=== PATIENT | male | born 1965 | race African-American/Black ===

== ENCOUNTER 2016-11-09 01:26 | Emergency (ER) | payer OTHER ==
[~2016-11-09] VITALS: Ht 177.8 cm; Wt 72.3 kg
[~2016-11-09 01:26] MED LIST: CHOL5000 PO; COMBTAB PO; DOXY100T PO; GABA300C3 PO; MIRTA15 PO; MOBI15TA PO; NEVI200 PO; TRAM50 PO; TRUVTAB2 PO
[2016-11-09 01:39] VITALS: BP 147/82; PULSE 100; RESP 18; TEMP 98.3; O2SAT 100
[2016-11-09] MEDS ORDERED: EMTR1TAB PO (01:49)
[2016-11-09] MEDS ORDERED: GABA300C5 PO (01:49)
[2016-11-09] MEDS ORDERED: COMBTAB7 PO (01:49)
[2016-11-09] MEDS ORDERED: VIRA200T PO (01:49)
[2016-11-09] MEDS ORDERED: ULTR50TA5 PO (01:49)
[2016-11-09] MEDS ORDERED: MIRTA15 PO (01:49)
--- NOTE | 2016-11-09 01:49 | PD ---
HPI Chief Complaint: Psychiatric Symptoms Time Seen by Provider: 01:44 Travel History International Travel<30 days: No Contact w/Intl Traveler<30days: No History of Present Illness HPI 51-year-old male with history of HIV, presents to the ER today because he had stated to a friend that he went to jump off the [employer] bridge. He was Luis acted. He denies any intention to commit suicide. He denies any ingestions or any other issues. Modifying Factors: None Associated Signs & Symptoms: Smith act, suicidal ideation Risk Factors: None PFSH Past Medical History Hx Anticoagulant Therapy: Yes (UNKNOWN) Blood Disorders: No Anxiety: Yes Depression: No Heart Rhythm Problems: No Cancer: No Cardiac Catheterization: No Cardiovascular Problems: No High Cholesterol: Yes Congestive Heart Failure: No Diabetes: No Diminished Hearing: No Endocrine: No Genitourinary: No Headaches: No Hepatitis: Yes Hypertension: Yes Immune Disorder: Yes (HIV +) Implanted Vascular Access Dvce: No Musculoskeletal: No Neurologic: No Psychiatric: No Reproductive: No Respiratory: No Seizures: No Past Surgical History Surgical History: No Previous Surgery Other Surgery: No Social History Alcohol Use: Yes Tobacco Use: Yes (2 PPD) Substance Use: Yes (crack in past ) Allergies-Medications (Allergen,Severity, Reaction): Coded Allergies: No Known Allergies (Verified , 11/09/16) Reported Meds & Prescriptions Reported Meds & Active Scripts Active Reported Ultram (Tramadol HCl) 50 Mg Tab 50 Mg PO Q8H PRN Mirtazapine 15 Mg Tab 15 Mg PO HS Viramune (Nevirapine) 200 Mg Tab 200 Mg PO BID Gabapentin 300 Mg Cap 300 Mg PO TID Combivir (Lamivudine-Zidovudine) 150-300 Mg Tab 1 Tab PO BID Truvada (Emtricitabine-Tenofovir Disoproxil Fumarate) 200-300 Mg Tab 1 Tab PO DAILY Review of Systems Except as stated in HPI: all other systems reviewed are Neg Physical Exam Narrative GENERAL: Well-developed middle age -[place] male patient currently not in acute distress. Awake and oriented 3. SKIN: Focused skin assessment warm/dry. HEAD: Atraumatic. Normocephalic. EYES: Pupils equal and round. No scleral icterus. No injection or drainage. ENT: No nasal bleeding or discharge. Mucous membranes pink and moist. NECK: Trachea midline. No JVD. CARDIOVASCULAR: Regular rate and rhythm. No murmur appreciated. RESPIRATORY: No accessory muscle use. Clear to auscultation. Breath sounds equal bilaterally. GASTROINTESTINAL: Abdomen soft, non-tender, nondistended. Hepatic and splenic margins not palpable. MUSCULOSKELETAL: No obvious deformities. No clubbing. No cyanosis. No edema. NEUROLOGICAL: Awake and alert. No obvious cranial nerve deficits. Motor grossly within normal limits. Normal speech. PSYCHIATRIC: Appropriate mood and affect; insight and judgment normal. Data Data Last Documented VS Vital Signs Date Time Temp Pulse Resp B/P Pulse Ox O2 Delivery O2 Flow Rate FiO2 11/09/16 01:39 98.3 100 18 147/82 100 Orders Complete Blood Count With Diff (11/09/16 01:44) Comprehensive Metabolic Panel (11/09/16 01:44) Psych Screen (11/09/16 01:44) Drug Screen, Random Urine (11/09/16 01:44) Alcohol (Ethanol) (11/09/16 01:44) Labs Laboratory Tests Test 11/09/16 11/09/16 01:23 01:50 Urine Opiates Screen NEG Urine Barbiturates Screen NEG Urine Amphetamines Screen NEG Urine Benzodiazepines Screen NEG Urine Cocaine Screen NEG Urine Cannabinoids Screen NEG White Blood Count 6.2 TH/MM3 Red Blood Count 4.54 MIL/MM3 Hemoglobin 16.0 GM/DL Hematocrit 45.9 % Mean Corpuscular Volume 101.2 FL Mean Corpuscular Hemoglobin 35.1 PG Mean Corpuscular Hemoglobin 34.7 % Concent Red Cell Distribution Width 14.9 % Platelet Count 171 TH/MM3 Mean Platelet Volume 9.4 FL Neutrophils (%) (Auto) 51.3 % Lymphocytes (%) (Auto) 34.5 % Monocytes (%) (Auto) 11.4 % Eosinophils (%) (Auto) 2.1 % Basophils (%) (Auto) 0.7 % Neutrophils # (Auto) 3.2 TH/MM3 Lymphocytes # (Auto) 2.1 TH/MM3 Monocytes # (Auto) 0.7 TH/MM3 Eosinophils # (Auto) 0.1 TH/MM3 Basophils # (Auto) 0.0 TH/MM3 CBC Comment DIFF FINAL Differential Comment Sodium Level 142 MEQ/L Potassium Level 4.1 MEQ/L Chloride Level 105 MEQ/L Carbon Dioxide Level 29.3 MEQ/L Anion Gap 8 MEQ/L Blood Urea Nitrogen 23 MG/DL Creatinine 1.28 MG/DL Estimat Glomerular Filtration 72 ML/MIN Rate Random Glucose 93 MG/DL Calcium Level 9.3 MG/DL Total Bilirubin 0.3 MG/DL Aspartate Amino Transf 21 U/L (AST/SGOT) Alanine Aminotransferase 25 U/L (ALT/SGPT) Alkaline Phosphatase 62 U/L Total Protein 8.1 GM/DL Albumin 4.1 GM/DL Ethyl Alcohol Level LESS THAN 3 MG/DL MDM Medical Decision Making Medical Screen Exam Complete: Yes Emergency Medical Condition: Yes Medical Record Reviewed: Yes Interpretation(s) Laboratory Tests Test 11/09/16 01:50 Mean Corpuscular Volume 101.2 FL (80.0-100.0) Mean Corpuscular Hemoglobin 35.1 PG (27.0-34.0) Monocytes (%) (Auto) 11.4 % (0.0-8.0) Blood Urea Nitrogen 23 MG/DL (7-18) Estimat Glomerular Filtration 72 ML/MIN (>89) Rate Differential Diagnosis Suicidal ideationrule out ingestions versus intoxication versus metabolic issues Narrative Course Lab work did not show any significant metabolic issues. He is not intoxicated. Patient is vital signs are stable in the ER. Lab work did not indicate significant metabolic issues. He is not intoxicated. At this point, my plan would be to medically clear for psychiatric evaluation. Diagnosis Primary Impression: Suicidal ideation Disposition: 65 DISC TO PSYCH CARE FACILITY Condition: Stable Tristian Hill MD November 09, 2016 01:49
[2016-11-09 02:01] LABS: AUTOMATED NEUTROPHIL # 3.2 TH/MM3 (1.8-7.7); BASOPHIL % 0.7 % (0.0-2.0); EOSINOPHIL # 0.1 TH/MM3 (0-0.4); EOSINOPHIL % 2.1 % (0.0-4.0); HEMATOCRIT 45.9 % (39.0-51.0); HEMO FLAGS DIFF FINAL; LYMPH % 34.5 % (9.0-44.0); LYMPHOCYTE # 2.1 TH/MM3 (1.0-4.8); MEAN CELL VOLUME 101.2 FL (80.0-100.0); MEAN CORPUSCULAR HEMOGLOBIN 35.1 PG (27.0-34.0); MEAN CORPUSCULAR HGB CONC 34.7 % (32.0-36.0); MONO % 11.4 % (0.0-8.0); NEUT % 51.3 % (16.0-70.0); PLATELET COUNT 171 TH/MM3 (150-450); RED BLOOD COUNT 4.54 MIL/MM3 (4.50-5.90); RED CELL DISTRIBUTION WIDTH 14.9 % (11.6-17.2); WHITE BLOOD COUNT 6.2 TH/MM3 (4.0-11.0)
[2016-11-09 02:11] LABS: AMPHETAMINE, URINE NEG (NEG); BARBITURATES, URINE NEG (NEG); COCAINE, URINE NEG (NEG)
[2016-11-09 02:29] LABS: ALKALINE PHOSPHATASE 62 U/L (45-117); ALT (GPT) 25 U/L (12-78); TOTAL BILIRUBIN ADULT 0.3 MG/DL (0.2-1.0)
[2016-11-09 02:31] LABS: ANION GAP 8 MEQ/L (5-15); AST (GOT) 21 U/L (15-37); BICARBONATE 29.3 MEQ/L (21.0-32.0); BLOOD UREA NITROGEN 23 MG/DL (7-18); CHLORIDE 105 MEQ/L (98-107); GLOMERULAR FILTRATION RATE 72 ML/MIN (>89); POTASSIUM 4.1 MEQ/L (3.5-5.1); SODIUM (NA) 142 MEQ/L (136-145)
[2016-11-09 06:09] VITALS: BP 106/54; PULSE 71; RESP 18; O2SAT 99
[2016-11-09 10:05] VITALS: BP 118/58; PULSE 86; RESP 18; TEMP 97.9; O2SAT 98
[2016-11-09 14:05] VITALS: BP 137/64; PULSE 82; RESP 18; TEMP 98.6; O2SAT 96
--- NOTE | 2016-11-10 08:31 | PD.CONS ---
Provisional Diagnosis Admission Date [place] I. Adjustment disorder with depressed mood History of Present Illness Service Psychiatry Consult Requested By Primary Care Physician Unknown HPI The patient is a 51-year-old man, domiciled with his sister in [place], unemployed, single, on SSD, well known by this service, multiple ER visits with similar complaints, psychiatric history of adjustment disorder with disturbance of conduct, medical history of HIV, presents to the ER today because he had stated to a friend that he went to jump off the [employer] bridge. He was Smith acted. Since patient arrived to the ER he has been stating that this was a misunderstood and he did not wanted to jump off a bridge. On psychiatric evaluation patient is found sitting quietly in his room. In a good spirits, reports good mood, is states that he was misinterpreted. He denies depression, he denies suicidal ideation, denies visual and auditory hallucinations. He is very malodorous and disheveled, as per staff patient has been calm and cooperative in the unit, cheerful at times, asking frequently for food. No agitation or aggressive behavior reported. He denies the use of alcohol and illicit drugs. Review of Systems Constitutional: DENIES: Diaphoretic episodes, Fatigue, Fever, Weight gain, Weight loss, Chills, Dizziness, Change in appetite, Night Sweats Endocrine: DENIES: Heat/cold intolerance, Polydipsia, Polyuria, Polyphagia Eyes: DENIES: Blurred vision, Diplopia, Eye inflammation, Eye pain, Vision loss , Photosensitivity, Double Vision Ears, nose, mouth, throat: DENIES: Tinnitus, Hearing loss, Vertigo, Nasal discharge, Oral lesions, Throat pain, Hoarseness, Ear Pain, Running Nose, Epistaxis, Sinus Pain, Toothache, Odynophagia Respiratory: DENIES: Apneas, Cough, Snoring, Wheezing, Hemoptysis, Sputum production, Shortness of breath Cardiovascular: DENIES: Chest pain, Palpitations, Syncope, Dyspnea on Exertion , PND, Lower Extremity Edema, Orthopnea, Claudication Gastrointestinal: DENIES: Abdominal pain, Black stools, Bloody stools, Constipation, Diarrhea, Nausea, Vomiting, Difficulty Swallowing, Anorexia Genitourinary: DENIES: Sexual dysfunction, Urinary frequency, Urinary incontinence, Urgency, Hematuria, Dysuria, Nocturia, Penile Discharge, Testicular Pain, Testicular Swelling Musculoskeletal: DENIES: Joint pain, Muscle aches, Stiffness, Joint Swelling, Back pain, Neck pain Integumentary: DENIES: Abnormal pigmentation, Nail changes, Pruritus, Rash Hematologic/lymphatic: DENIES: Bruising, Lymphadenopathy Immunologic/allergic: DENIES: Eczema, Urticaria Neurologic: DENIES: Abnormal gait, Headache, Localized weakness, Paresthesias, Seizures, Speech Problems, Tremor, Poor Balance Psychiatric: DENIES: Anxiety, Confusion, Mood changes, Depression, Hallucinations, Agitation, Suicidal Ideation, Homicidal Ideation, Delusions Past Family Social History Coded Allergies: No Known Allergies (Verified , 11/09/16) Reported Medications Tramadol (Ultram)50 Mg Tab50 Mg PO Q8H PRN (PAIN) Ref 0 11/09/16 Mirtazapine 15 Mg Tab15 Mg PO HS #30 TAB Ref 0 11/09/16 Nevirapine (Viramune)200 Mg [id number] Mg PO BID #60 TAB Ref 0 11/09/16 Gabapentin 300 Mg [id number] Mg PO TID #90 CAP Ref 0 11/09/16 Lamivudine-Zidovudine (Combivir)150-300 Mg Tab1 Tab PO BID #60 TAB Ref 0 11/09/16 Emtricitabine-Tenofovir Disoproxil Fumarate (Truvada)200-300 Mg Tab1 Tab PO DAILY #30 TAB Ref 0 11/09/16 Discontinued Reported Medications Gabapentin 300 Mg [id number] Mg PO TID 03/19/14 Lamivudine-Zidovudine (Combivir) Tab1 Tab PO DAILY #1 TAB 08/07/13 Emtricitabine-Tenofovir Disopr (Truvada) [id number] Mg PO DAILY 10/24/11 Nevirapine (Viramune)200 Mg Ont868 Mg PO BID Ref 0 04/08/11 Discontinued Scripts Tramadol Hcl (Ultram)50 Mg Tab1 Tab PO Q6HR #20 TAB FOR PAIN Prov:Alexsander Kitchen MD 07/01/15 Meloxicam (Mobic)15 Mg Tab15 Mg PO DAILY #30 TAB Prov:Alexsander Kitchen MD 07/01/15 Doxycycline Hyclate 100 mg 100 Mg Tab1 Tab PO BID #20 TAB Prov:Alexsander Kitchen MD 07/01/15 Cholecalciferol (D 5000)5,000 Units Cap5,000 Units PO DAILY 15 Days Ref 1 Prov:Enrique Solis MD 04/27/15 Mirtazapine 15 Mg Tab15 Mg PO HS 15 Days Ref 1 Prov:Enrique Solis MD 04/27/15 Family History Patient denies psychiatric family history Social History Patient was born and raised in [place], he lives with his sister, he is unemployed, supported by SSD, single her highest level of education is 11th grade Physical Exam On physical exam no psychomotor agitation or retardation, no restlessness, no EPS, no withdrawal symptoms, tremors Vital Signs Vital Signs Date Time Temp Pulse Resp B/P Pulse Ox O2 Delivery O2 Flow Rate FiO2 11/09/16 14:05 98.6 82 18 137/64 96 Room Air Lab Results Toxicology is negative, BAL is negative Mental Status Examination Appearance man, with poor hygiene, malodorous, he appears younger than his stated age, is calm, cooperative Speech: Unremarkable Thought Process: Logical Thought Content: Unremarkable Language Fluent and spontaneous Hallucination Type: None Attention and Concentration: Good Suicidal Ideation: No Previous Suicide Attempts: No Homicidal Ideation: No Previous Homicide Attempts: No Judgment: WNL Mood: Appropriate Motor Activity: Normal gait Assessment & Plan Problem List: (1) Adjustment disorder with mixed disturbance of emotions and conduct Assessment & Plan: On psychiatric evaluation the patient does not present any psychiatric symptoms that require an immediate psychiatric intervention or psychiatric hospitalization. Patient denies suicidal or homicidal ideation, he denies visual and auditory hallucinations. On the Longitudinal observation in the ER patient hasn't presented any agitation, aggressive behavior, any concerning mood liability or behavioral disturbance. He does not meet criteria for psychiatric admission. Smith act will be lifted. ICD Code: F43.25 Assessment & Plan Estimated LOS: Frandy Gamboa MD November 10, 2016 08:31
== END 2016-11-09 18:02 | disposition home or self-care (01) ==
LOC: NEPE 01:26 → NEPJ 18:02
DX: R45.851 Suicidal ideations (principal); F43.25 Adjustment disorder with mixed disturbance of emotions and conduct; I10 Essential (primary) hypertension; E78.00 Pure hypercholesterolemia, unspecified; F17.200 Nicotine dependence, unspecified, uncomplicated; Z79.01 Long term (current) use of anticoagulants; Z21 Asymptomatic human immunodeficiency virus [HIV] infection status; Z86.59 Personal history of other mental and behavioral disorders
CPT/HCPCS: 80053; 80307; 85025; 99283

== ENCOUNTER 2017-01-25 13:58 | Observation (INO) | payer OTHER ==
[~2017-01-25] VITALS: Ht 177.8 cm; Wt 70.0 kg
[2017-01-25] VITALS (10 sets, daily range): BP systolic 119–145; BP diastolic 69–82; PULSE 67–97; RESP 18–21; TEMP 97.8–99; O2SAT 95–100
[~2017-01-25 13:58] MED LIST changes: -CHOL5000 PO; -COMBTAB PO; +COMBTAB7 PO; -DOXY100T PO; +EMTR1TAB PO; -GABA300C3 PO; +GABA300C5 PO; -MOBI15TA PO; -NEVI200 PO; -TRAM50 PO; -TRUVTAB2 PO; +ULTR50TA5 PO; +VIRA200T PO
[2017-01-25] MEDS ORDERED: ASPIRIN 81 MG CHEW TAB CHEW ONE (14:45)
[2017-01-25 15:19] LABS: AUTOMATED NEUTROPHIL # 2.6 TH/MM3 (1.8-7.7); BASOPHIL % 0.8 % (0.0-2.0); EOSINOPHIL # 0.1 TH/MM3 (0-0.4); EOSINOPHIL % 1.4 % (0.0-4.0); HEMATOCRIT 44.6 % (39.0-51.0); HEMO FLAGS DIFF FINAL; LYMPH % 30.9 % (9.0-44.0); LYMPHOCYTE # 1.4 TH/MM3 (1.0-4.8); MEAN CELL VOLUME 102.3 FL (80.0-100.0); MEAN CORPUSCULAR HEMOGLOBIN 35.8 PG (27.0-34.0); MONO % 8.6 % (0.0-8.0); NEUT % 58.3 % (16.0-70.0); PLATELET COUNT 177 TH/MM3 (150-450); RED BLOOD COUNT 4.36 MIL/MM3 (4.50-5.90); RED CELL DISTRIBUTION WIDTH 15.2 % (11.6-17.2); WHITE BLOOD COUNT 4.4 TH/MM3 (4.0-11.0)
--- NOTE | 2017-01-25 15:19 | RADRPT ---
EXAM DATE/TIME: 01/25/2017 14:41 [facility] COMPARISON: No previous studies available for comparison. INDICATIONS : Chest pain MEDICAL HISTORY : None. SURGICAL HISTORY : None. ENCOUNTER: Initial ACUITY: 1 day PAIN SCORE: 2/10 LOCATION: chest FINDINGS: A single view of the chest demonstrates the lungs to be symmetrically aerated without evidence of mas s, infiltrate or effusion. The cardiomediastinal contours are unremarkable. Osseous structures are intact. CONCLUSION: No acute disease. Jose Juan Mccoy MD on January 25, 2017 at 15:17 Board Certified Radiologist. This report was verified electronically.
--- NOTE | 2017-01-25 15:20 | PD ---
HPI Chief Complaint: Chest Pain Time Seen by Provider: 14:36 Travel History International Travel<30 days: No Contact w/Intl Traveler<30days: No Traveled to known affect area: No History of Present Illness HPI This is a 51-year-old male who has a history of hypertension who presents to the emergency department reporting that he had onset of left-sided chest discomfort that started this morning. His symptoms of been constant, moderate severity nonradiating. He reports some associated shortness of breath and nausea. The pain has been intermittent but has lasted all day so he came to the emergency department. He says his never had pain like this before. He did use cocaine last night. PFSH Past Medical History Hx Anticoagulant Therapy: Yes (UNKNOWN) Blood Disorders: No Anxiety: Yes Depression: No Heart Rhythm Problems: No Cancer: No Cardiac Catheterization: No Cardiovascular Problems: No High Cholesterol: Yes Congestive Heart Failure: No Diabetes: No Diminished Hearing: No Endocrine: No Genitourinary: No Headaches: No Hepatitis: Yes Hypertension: Yes Immune Disorder: Yes (HIV +) Implanted Vascular Access Dvce: No Musculoskeletal: No Neurologic: No Psychiatric: No Reproductive: No Respiratory: No Seizures: No Tetanus Vaccination: < 5 Years Past Surgical History Surgical History: No Previous Surgery Other Surgery: No Social History Alcohol Use: Yes (beer) Tobacco Use: Yes (2 PPD) Substance Use: Yes (pt states he smoked craked last night ) Allergies-Medications (Allergen,Severity, Reaction): Coded Allergies: No Known Allergies (Verified , 01/25/17) Reported Meds & Prescriptions Reported Meds & Active Scripts Active Reported Ultram (Tramadol HCl) 50 Mg Tab 50 Mg PO Q8H PRN Mirtazapine 15 Mg Tab 15 Mg PO HS Viramune (Nevirapine) 200 Mg Tab 200 Mg PO BID Gabapentin 300 Mg Cap 300 Mg PO TID Combivir (Lamivudine-Zidovudine) 150-300 Mg Tab 1 Tab PO BID Truvada (Emtricitabine-Tenofovir Disoproxil Fumarate) 200-300 Mg Tab 1 Tab PO DAILY Review of Systems Except as stated in HPI: all other systems reviewed are Neg Physical Exam Narrative GENERAL:Well appearing, no acute distress SKIN: Focused skin assessment warm and dry. HEAD: Atraumatic. Normocephalic. EYES: Pupils equal and round. No injection or drainage. ENT: Moist mucous membranes NECK: Trachea midline. CARDIOVASCULAR: Regular rate and rhythm. No murmur appreciated. RESPIRATORY: Clear to auscultation. Breath sounds equal bilaterally. GASTROINTESTINAL: Abdomen soft, non-tender, nondistended. MUSCULOSKELETAL: No obvious deformities. NEUROLOGICAL: Awake and alert. No obvious cranial nerve deficits. Moving all extremities. PSYCHIATRIC: Appropriate mood and affect; insight and judgment normal. Data Data Last Documented VS Vital Signs Date Time Temp Pulse Resp B/P Pulse Ox O2 Delivery O2 Flow Rate FiO2 01/25/17 14:39 98 Nasal Cannula 2 01/25/17 14:15 93 20 01/25/17 14:08 98.6 145/82 Orders Electrocardiogram (01/25/17 14:36) Complete Blood Count With Diff (01/25/17 14:36) Comprehensive Metabolic Panel (01/25/17 14:36) Troponin I (01/25/17 14:36) Chest, Single Ap (01/25/17 14:36) Ecg Monitoring (01/25/17 14:36) Bilateral Bp Monitoring (01/25/17 14:36) Iv Access Insert/Monitor (01/25/17 14:36) Oximetry (01/25/17 14:36) Oxygen Administration (01/25/17 14:36) Sodium Chloride 0.9% Flush (Ns Flush) (01/25/17 14:45) Aspirin Chew (Aspirin Chew) (01/25/17 14:45) Admit Order (Ed Use Only) (01/25/17 15:44) Labs Laboratory Tests Test 01/25/17 14:55 White Blood Count 4.4 TH/MM3 Red Blood Count 4.36 MIL/MM3 Hemoglobin 15.6 GM/DL Hematocrit 44.6 % Mean Corpuscular Volume 102.3 FL Mean Corpuscular Hemoglobin 35.8 PG Mean Corpuscular Hemoglobin 35.0 % Concent Red Cell Distribution Width 15.2 % Platelet Count 177 TH/MM3 Mean Platelet Volume 8.9 FL Neutrophils (%) (Auto) 58.3 % Lymphocytes (%) (Auto) 30.9 % Monocytes (%) (Auto) 8.6 % Eosinophils (%) (Auto) 1.4 % Basophils (%) (Auto) 0.8 % Neutrophils # (Auto) 2.6 TH/MM3 Lymphocytes # (Auto) 1.4 TH/MM3 Monocytes # (Auto) 0.4 TH/MM3 Eosinophils # (Auto) 0.1 TH/MM3 Basophils # (Auto) 0.0 TH/MM3 CBC Comment DIFF FINAL Differential Comment Sodium Level 136 MEQ/L Potassium Level 4.9 MEQ/L Chloride Level 99 MEQ/L Carbon Dioxide Level 24.8 MEQ/L Anion Gap 12 MEQ/L Blood Urea Nitrogen 15 MG/DL Creatinine 1.03 MG/DL Estimat Glomerular Filtration 92 ML/MIN Rate Random Glucose 80 MG/DL Calcium Level 8.9 MG/DL Total Bilirubin 0.6 MG/DL Aspartate Amino Transf 45 U/L (AST/SGOT) Alanine Aminotransferase 37 U/L (ALT/SGPT) Alkaline Phosphatase 60 U/L Troponin I LESS THAN 0.02 NG/ML Total Protein 7.9 GM/DL Albumin 4.0 GM/DL [facility] Medical Decision Making Medical Screen Exam Complete: Yes Emergency Medical Condition: Yes Interpretation(s) EKG: Normal sinus rhythm with no ST changes No leukocytosis Electrolytes are reassuring Troponin is normal Differential Diagnosis Acute coronary syndrome, cocaine vasospasm, aortic dissection, panic attack Narrative Course This is a 51-year-old male who has a history of HIV and cocaine abuse who presents to the emergency department with chest discomfort. His EKG is nonischemic. He was placed on a monitor and an IV was established. Labs are obtained which were reassuring. Patient does not appear to have an aortic dissection as he appears quite comfortable. I think he merits serial cardiac enzymes and the chest pain center as he has had increased risk of atherosclerosis in the setting of his history of cocaine abuse, smoking history , and HIV. Diagnosis Primary Impression: Chest pain Qualified Code: R07.9 - Chest pain, unspecified type Admitting Information Admitting Physician Requests: Juliette Leal MD Jan 25, 2017 15:20
[2017-01-25 15:39] LABS: ALKALINE PHOSPHATASE 60 U/L (45-117); ALT (GPT) 37 U/L (12-78); ANION GAP 12 MEQ/L (5-15); AST (GOT) 45 U/L (15-37); BICARBONATE 24.8 MEQ/L (21.0-32.0); BLOOD UREA NITROGEN 15 MG/DL (7-18); CHLORIDE 99 MEQ/L (98-107); GLOMERULAR FILTRATION RATE 92 ML/MIN (>89); SODIUM (NA) 136 MEQ/L (136-145); TOTAL BILIRUBIN ADULT 0.6 MG/DL (0.2-1.0)
[2017-01-25 15:40] LABS: POTASSIUM 4.9 MEQ/L (3.5-5.1)
[2017-01-25] MEDS ORDERED: ALPRAZolam 0.25 MG TAB PO PRN (16:15)
[2017-01-25] MEDS ORDERED: ACETAMINOPHEN/HYDROcodone 325 MG/7.5 MG TAB PO PRN (16:15)
[2017-01-25] MEDS ORDERED: ONDANSETRON HCL 4 MG/2 ML VIAL IV PRN (16:15)
[2017-01-25] MEDS ORDERED: ACETAMINOPHEN 500 MG CPLT PO PRN (16:15)
[2017-01-25] MEDS ORDERED: RESP: ALBUTEROL 2.5 MG/IPRATROPIUM 0.5 MG NEB (PRN) INH (16:15)
[2017-01-25] MEDS ORDERED: traMADol HCL 50 MG TAB PO PRN (16:15)
[2017-01-25] MEDS ORDERED: cloNIDine HCL 0.1 MG TAB PO PRN (16:15)
[2017-01-25] MEDS ORDERED: SODIUM CHLORIDE 0.9% FLUSH 5 ML FLUSH IVF PRN (16:15)
--- NOTE | 2017-01-25 16:41 | HHI.HP ---
HPI Primary Care Physician Unknown Chief Complaint Chest pain History of Present Illness This is a 51-year-old male with history of HIV that presents to with a complaint of waking up with a left-sided chest tightness that has been intermittent throughout the morning. Each episode lasting about 1 minute. He times short of breath, nauseous, and diaphoretic. Saw nothing in particular to bring on the discomfort. Nothing seems to worsen or improve when he has it. Denies history of CAD. Cannot recall prior stress testing. Patient missed using crack cocaine on a daily basis. Review of Systems General: Patient denies fevers, chills recent, and recent travel HEENT: Patient denies headache, sore throat, difficulty swallowing. Cardiovascular: Has the chest discomfort as mentioned above. Denies sensation of heart beating rapidly or irregularly. No syncope. He was diaphoretic. Respiratory: He was Short of breath. Denies or inspirational chest discomfort. Denies coughing wheezing or hemoptysis. GI: He was nauseous. Patient denies vomiting, diarrhea, abdominal pain, bloody stools. Musculoskeletal: Patient denies joint pain or edema. Denies calf pain or edema. Neurovascular: Patient denies numbness, tingling, weakness in extremities. Denies headache. Endocrine: Denies polyuria and polydipsia. Hematologic: Denies easy bruising. Skin: Denies rash or itching. Past Family Social History Allergies: Coded Allergies: No Known Allergies (Verified , 01/25/17) Past Medical History HIV. Hyperlipidemia however no current medications. Cocaine abuse. Denies HTN , , DM, CAD. Past Surgical History Denies. Reported Medications Reported Meds & Active Scripts Active Reported Ultram (Tramadol HCl) 50 Mg Tab 50 Mg PO Q8H PRN Mirtazapine 15 Mg Tab 15 Mg PO HS Viramune (Nevirapine) 200 Mg Tab 200 Mg PO BID Gabapentin 300 Mg Cap 300 Mg PO TID Combivir (Lamivudine-Zidovudine) 150-300 Mg Tab 1 Tab PO BID Truvada (Emtricitabine-Tenofovir Disoproxil Fumarate) 200-300 Mg Tab 1 Tab PO DAILY Active Ordered Medications Current Medications Medications (Trade) Dose Ordered Sig/Ange Route Start Time Stop Time Status Last Admin (NS Flush) 2 ml UNSCH PRN IVF 01/25/17 14:45 (NS Flush) 2 ml UNSCH PRN IVF 01/25/17 16:15 UNV (NS Flush) 2 ml BID IVF 01/25/17 21:00 UNV (Tylenol) 500 mg Q4H PRN PO 01/25/17 16:15 UNV ([place] 7.5-325 Mg) 1 tab Q4H PRN PO 01/25/17 16:15 UNV (Zofran Inj) 4 mg Q6H PRN IV 01/25/17 16:15 UNV (Protonix) 40 mg DAILY PO 01/25/17 16:15 UNV (Aspirin) 325 mg DAILY PO 01/26/17 09:00 UNV (Xanax) 0.25 mg Q8H PRN PO 01/25/17 16:15 UNV (Catapres) 0.1 mg Q4H PRN PO 01/25/17 16:15 UNV (Truvada 200-300 Mg) 1 tab DAILY PO 01/26/17 09:00 UNV (Neurontin) 300 mg TID PO 01/25/17 18:00 UNV (Remeron) 15 mg HS PO 01/25/17 21:00 UNV (Viramune) 200 mg BID PO 01/25/17 21:00 UNV (Ultram) 50 mg Q8H PRN PO 01/25/17 16:15 UNV Non-Formulary Medication 1 tab BID PO 01/25/17 21:00 UNV Family History Denies family history of CAD. Social History Patient smokes 2 packs of cigarettes daily. He smokes crack cocaine every evening. He drinks 4 beers a week. Physical Exam Vital Signs Vital Signs Date Time Temp Pulse Resp B/P Pulse Ox O2 Delivery O2 Flow Rate FiO2 01/25/17 14:39 98 Nasal Cannula 2 01/25/17 14:39 98 Nasal Cannula 2 01/25/17 14:15 93 20 95 Room Air 01/25/17 14:08 98.6 97 20 145/82 95 Physical Exam GENERAL: This is a well-nourished, well-developed patient, in no apparent distress. Patient speaks in clear complete sentences. Patient is pleasant. HEENT: Head is atraumatic and normocephalic. Neck is supple without lymphadenopathy and trachea is midline. No JVD or carotid bruits. CARDIOVASCULAR: Regular rate and rhythm without murmurs, gallops, or rubs. RESPIRATORY: Clear to auscultation. Breath sounds equal bilaterally. No wheezes , rales, or rhonchi. Chest wall is nontender. No use of accessory muscles. GASTROINTESTINAL: Abdomen is nontender, nondistended. Abdomen soft. No obvious pulsatile mass or bruit. No CVA tenderness. Strong femoral pulses bilaterally. Normal bowel sounds in all quadrants. MUSCULOSKELETAL: Patient is moving upper and lower extremities freely. No calf tenderness or edema, no Homans sign. Strong pulses in upper and lower extremities. NEUROLOGICAL: Patient is alert and oriented. Cranial nerves 2-12 are grossly intact. No focal deficits and speech is clear. SKIN: No rash and turgor is normal. Laboratory Laboratory Tests Test 01/25/17 14:55 White Blood Count 4.4 Red Blood Count 4.36 Hemoglobin 15.6 Hematocrit 44.6 Mean Corpuscular Volume 102.3 Mean Corpuscular Hemoglobin 35.8 Mean Corpuscular Hemoglobin 35.0 Concent Red Cell Distribution Width 15.2 Platelet Count 177 Mean Platelet Volume 8.9 Neutrophils (%) (Auto) 58.3 Lymphocytes (%) (Auto) 30.9 Monocytes (%) (Auto) 8.6 Eosinophils (%) (Auto) 1.4 Basophils (%) (Auto) 0.8 Neutrophils # (Auto) 2.6 Lymphocytes # (Auto) 1.4 Monocytes # (Auto) 0.4 Eosinophils # (Auto) 0.1 Basophils # (Auto) 0.0 CBC Comment DIFF FINAL Differential Comment Sodium Level 136 Potassium Level 4.9 Chloride Level 99 Carbon Dioxide Level 24.8 Anion Gap 12 Blood Urea Nitrogen 15 Creatinine 1.03 Estimat Glomerular Filtration 92 Rate Random Glucose 80 Calcium Level 8.9 Total Bilirubin 0.6 Aspartate Amino Transf 45 (AST/SGOT) Alanine Aminotransferase 37 (ALT/SGPT) Alkaline Phosphatase 60 Troponin I LESS THAN 0.02 Total Protein 7.9 Albumin 4.0 Result Diagram: 01/25/17 1455 01/25/17 1455 Imaging Last 48 hours Impressions Chest X-Ray 01/25/17 1436 Signed Impressions: Service Date/Time: Wednesday, January 25, 2017 14:41 - CONCLUSION: No acute disease. Jose Juan Mccoy MD Course Initial EKG has sinus rhythm without significant ST segment depressions or elevations. Assessment and Plan Assessment and Plan * Chest pain: Patient will continue to have serial cardiac enzymes and EKGs for ruling out purposes. He will be seen by Dr. Romero of cardiology and the chest pain center in the morning and likely have a Hal protocol ETT. He'll be discharged home if stress test is nonischemic with instructions to follow-up with PCP. * Cocaine abuse: Patient has been counseled on importance of a longer using cocaine. * Tobacco abuse: Patient is been counseled on smoking cessation. * HIV: We'll resume his medication. He needs to follow-up with his physician. Patient is stable at this time. He is agreeable to this plan. Massimo Osuna Jan 25, 2017 16:41
[2017-01-25 19:37] LABS: CREATINE KINASE 374 U/L (39-308)
[2017-01-25 19:49] LABS: CKMB 1.5 NG/ML (0.5-3.6)
[2017-01-25] MEDS ORDERED: SODIUM CHLORIDE 0.9% FLUSH 5 ML FLUSH IVF SCH (21:00)
[2017-01-25] MEDS ORDERED: MIRTAZAPINE 15 MG TAB PO SCH (21:00)
[2017-01-25] MEDS: SODIUM CHLORIDE 0.9% FLUSH 10 ML FLUSH IVF PRN ×2 (22:03→22:07)
[2017-01-25] MEDS: GABAPENTIN 300 MG CAP PO SCH (22:03)
[2017-01-25] MEDS: PANTOPRAZOLE SOD 40 MG DELAYED RELEASE TAB PO SCH (22:03)
[2017-01-25] MEDS: NEVIRAPINE 200 MG TAB PO SCH (22:05)
[2017-01-25] MEDS: ZIDOVUDINE 100 MG CAP PO SCH (22:05)
[2017-01-26 01:31] LABS: CREATINE KINASE 330 U/L (39-308)
[2017-01-26 01:43] LABS: CKMB 1.9 NG/ML (0.5-3.6)
[2017-01-26 03:11] VITALS: BP 130/78; PULSE 74; RESP 21; TEMP 97.8; O2SAT 100
[2017-01-26 03:21] VITALS: PULSE 71
[2017-01-26 08:00] VITALS: PULSE 78
[2017-01-26] MEDS ORDERED: ASPIRIN 325 MG TAB PO SCH (09:00)
[2017-01-26] MEDS ORDERED: EMTRICITABINE/TENOFOVIR 200 MG/300 MG TAB PO SCH (09:00)
[2017-01-26] MEDS ORDERED: REGADENOSON INJ 0.4 MG/5 ML SYR ONE (09:43)
--- NOTE | 2017-01-26 10:54 | RADRPT ---
EXAM DATE/TIME: 01/26/2017 08:50 [facility] COMPARISON: No previous studies available for comparison. INDICATIONS : Left sided chest pain with shortness of breath and nausea for one day. Angina. DOSE: 26.5 mCi Tc99m Myoview at stress. 8.6 mCi Tc99m Myoview at rest. 0.4 mg Lexiscan STRESS SYMPTOMS: Shortness of breath. EJECTION FRACTION: 56% MEDICAL HISTORY : HIV. Substance abuse. SURGICAL HISTORY : None. ENCOUNTER: Initial ACUITY: 1 day PAIN SCALE: 8/10 LOCATION: Left chest TECHNIQUE: The patient underwent pharmacologic stress with infusion of prescribed dose. Continuous ECG tracing was monitored during stress. Gated SPECT imaging was performed after stress and conventional SPECT i maging was performed at rest. The examination was performed on a SPECT/CT scanner, both attenuation and non-corrected datasets were reviewed. FINDINGS: DISTRIBUTION: The maximum perfused segment at stress is in the septal wall. PERFUSION STUDY: The pattern of perfusion at stress shows some relative diminished perfusion to the apex of both the r est and stress images suggesting some apical thinning. No reversibility. GATED STUDY: There is intact wall motion and thickening without hypokinetic or dyskinetic segments. CONCLUSION: 1. Scintigraphic findings characteristic of apical thinning without ischemia. 2. Adequate wall motion throughout with estimated ejection fraction of 56%. RISK CATEGORY: Low (<1% Annual Mortality Rate) Jordy Guerrero MD on January 26, 2017 at 10:49 Board Certified Radiologist. This report was verified electronically.
--- NOTE | 2017-01-26 11:02 | HHI.DS ---
Discharge Summary Admission Date Jan 25, 2017 at 15:45 Discharge Date: Jan 26, 2017 Admitting Diagnosis Atypical chest pain (1) Atypical chest pain (2) Tobacco abuse (3) Cocaine abuse Brief History 51 male presents to the ER for further evaluation of chest pain after using cocaine. Ruled out with 3 sets of cardiac enzymes, EKGs, and monitored overnight. After evaluation by cardiology, patient completed a chemical stress test with was unremarkable. CBC/BMP: 01/25/17 1455 01/25/17 1455 Significant Findings Laboratory Tests Test 01/25/17 01/25/17 01/26/17 14:55 18:15 00:57 Red Blood Count 4.36 MIL/MM3 (4.50-5.90) Mean Corpuscular Volume 102.3 FL (80.0-100.0) Mean Corpuscular Hemoglobin 35.8 PG (27.0-34.0) Monocytes (%) (Auto) 8.6 % (0.0-8.0) Aspartate Amino Transf 45 U/L (15-37) (AST/SGOT) Troponin I LESS THAN 0.02 LESS THAN 0.02 LESS THAN 0.02 NG/ML NG/ML NG/ML (0.02-0.05) (0.02-0.05) (0.02-0.05) Total Creatine Kinase 374 U/L 330 U/L (39-308) (39-308) Imaging Last Impressions Myocardial Perfusion Scan Nuc Med 01/26/17 0000 Signed Impressions: Service Date/Time: Thursday, January 26, 2017 08:50 - CONCLUSION: 1. Scintigraphic findings characteristic of apical thinning without ischemia. 2. Adequate wall motion throughout with estimated ejection fraction of 56%%. RISK CATEGORY: Low (<1%% Annual Mortality Rate) Jordy Guerrero MD Chest X-Ray 01/25/17 1436 Signed Impressions: Service Date/Time: Wednesday, January 25, 2017 14:41 - CONCLUSION: No acute disease. Jose Juan Mccoy MD Pt Condition on Discharge: Good Discharge Disposition: Discharge Home Discharge Instructions DIET: Follow Instructions for: Heart Healthy Diet Speech Therapy-Diet Recommenda: Regular Activities you can perform: Regular-No Restrictions Additional Information Instructed to quit using cocaine. Risks of ME and even explained in length. Encouraged tobacco cessation. Sharron Perkins Jan 26, 2017 11:02
[2017-01-26] MEDS: ZIDOVUDINE 100 MG CAP PO SCH (11:03)
[2017-01-26] MEDS: NEVIRAPINE 200 MG TAB PO SCH (11:04)
[2017-01-26] MEDS: GABAPENTIN 300 MG CAP PO SCH (11:04)
[2017-01-26] MEDS: SODIUM CHLORIDE 0.9% FLUSH 10 ML FLUSH IVF PRN (11:04)
[2017-01-26] MEDS: PANTOPRAZOLE SOD 40 MG DELAYED RELEASE TAB PO SCH (11:04)
[2017-01-26 11:18] VITALS: BP 119/78; PULSE 69; RESP 18; TEMP 97.6; O2SAT 99
--- NOTE | 2017-01-27 08:28 | TR ---
Date Performed: 01/26/2017 Time Performed: 09:43:56 DOCTOR: Pallavi Barber DRUG LIST: CLINICAL HISTORY: ANGINA REASON FOR TEST: Angina REASON FOR ENDING: OBSERVATION: CONCLUSION: Lexiscan stress test was performed under standard four minute protocol. Radionuclid e was injected one minute prior to ending the test. No electrocardiographic abormalities were present to suggest ischemia. Nuclear imaging and interpretation are pending. COMMENTS:
--- NOTE | 2017-01-27 08:29 | EKG ---
Date Performed: 01/25/2017 Time Performed: 21:05:36 PTAGE: 51 years EKG: Sinus rhythm WITH SINUS ARRHYTHMIA NORMAL ECG Since PREVIOUS TRACING , no significant change noted PREVIOUS TRACIN01/25/2017 18.21 DOCTOR: Pallavi Barber Interpretating Date/Time 01/27/2017 08:28:42
--- NOTE | 2017-01-27 08:29 | EKG ---
Date Performed: 01/25/2017 Time Performed: 14:10:34 PTAGE: 51 years EKG: Sinus rhythm NORMAL ECG Since PREVIOUS TRACING , no significant change noted PREVIOUS TRACIN09/14/2015 22.39 DOCTOR: Pallavi Barber Interpretating Date/Time 01/27/2017 08:27:03
--- NOTE | 2017-01-27 08:29 | EKG ---
Date Performed: 01/25/2017 Time Performed: 18:21:31 PTAGE: 51 years EKG: Sinus rhythm EARLY REPOLARIZATION ABNORMAL ECG Since PREVIOUS TRACING , no significant change noted PREVIOUS TRACIN01/25/2017 14.10 DOCTOR: Pallavi Barber Interpretating Date/Time 01/27/2017 08:28:30
== END 2017-01-26 14:15 | disposition home or self-care (01) ==
LOC: NEPE 13:58 → NEDA 15:45 → INTOOBSV 15:45 → NEPFCDU 17:26
PROVIDERS: ADMIT Internal Medicine Interventional Cardiology; ATTEND Internal Medicine Interventional Cardiology
DX: R07.89 Other chest pain (principal); R61 Generalized hyperhidrosis; R06.02 Shortness of breath; B20 Human immunodeficiency virus [HIV] disease; F14.10 Cocaine abuse, uncomplicated; F17.210 Nicotine dependence, cigarettes, uncomplicated; I20.9 Angina pectoris, unspecified
CPT/HCPCS: 71010; 78452; 80053; 82550; 82552; 84484; 85025; 93005; 93017; 99285; A9502; G0378; J2785

== ENCOUNTER 2017-11-22 21:47 | Emergency (ER) | payer OTHER, MEDICAID ==
[~2017-11-22] VITALS: Ht 175.3 cm; Wt 72.0 kg
[~2017-11-22 21:47] MED LIST changes: -EMTR1TAB PO; +TRAM50 PO; +TRUV200300 PO; -ULTR50TA5 PO
[2017-11-22 21:53] VITALS: BP 140/85; PULSE 116; RESP 18; TEMP 98.4; O2SAT 98
--- NOTE | 2017-11-22 22:22 | PD ---
HPI Chief Complaint: Oral / Dental Pain or Problem Time Seen by Provider: 22:20 Travel History International Travel<30 days: No Contact w/Intl Traveler<30days: No Traveled to known affect area: No History of Present Illness HPI 52-year-old male came to the emergency room with history of left jaw pain and swelling since yesterday. Patient says that he knows it is his tooth since he has been having issues with it. He had issues with another tooth in the past that had to be pulled out. But he did not go to see a dentist before this 1. Currently he is in significant pain and appears to be in distress. No history of fever or chills. He was tachycardic in triage. No difficulty breathing or swallowing. Pain is localized to the left lower jaw without radiation. Pain is 10 out of 10 and constant. Worse upon touching. PFSH Past Medical History Narrative Medical List of his past medical, surgical, social and family history reviewed from the nursing note Hx Anticoagulant Therapy: Yes (UNKNOWN) Blood Disorders: No Anxiety: Yes Depression: No Heart Rhythm Problems: No Cancer: No Cardiac Catheterization: No Cardiovascular Problems: No High Cholesterol: Yes Congestive Heart Failure: No Diabetes: No Diminished Hearing: No Endocrine: No Genitourinary: No Headaches: No Hepatitis: Yes Hypertension: Yes Immune Disorder: Yes (HIV +) Implanted Vascular Access Dvce: No Musculoskeletal: No Neurologic: No Psychiatric: No Reproductive: No Respiratory: No Seizures: No Past Surgical History Coronary Artery Bypass Graft: No Other Surgery: No Social History Alcohol Use: No (beer) Tobacco Use: Yes (2 PPD) Substance Use: Yes (hx Crack use) Allergies-Medications (Allergen,Severity, Reaction): Coded Allergies: No Known Allergies (Verified , 01/25/17) Comments No known drug allergies. Reported Meds & Prescriptions Reported Meds & Active Scripts Active Hydrocodone-Acetaminophen 5-325 mg Tab 1 Tab PO Q6H PRN Augmentin (Amoxicillin-Clavulanate) 875-125 Mg Tab 1 Tab PO BID 10 Days Reported Mirtazapine 15 Mg Tab 15 Mg PO HS Viramune (Nevirapine) 200 Mg Tab 200 Mg PO BID Gabapentin 300 Mg Cap 300 Mg PO TID Combivir (Lamivudine-Zidovudine) 150-300 Mg Tab 1 Tab PO BID Truvada (Emtricitabine-Tenofovir Disoproxil Fumarate) 200-300 Mg Tab 1 Tab PO DAILY Narrative Medication List of his home medications reviewed from the nursing note Review of Systems Except as stated in HPI: all other systems reviewed are Neg HENT: Positive: Dental Difficulties Physical Exam Narrative GENERAL: Awake, alert, moderate distress SKIN: Focused skin assessment warm/dry. HEAD: Atraumatic. Normocephalic. EYES: Pupils equal and round. No scleral icterus. No injection or drainage. ENT: No nasal bleeding or discharge. Mucous membranes pink and moist. Swelling of the left lower cheek and jaw. There is significant swelling and tenderness in the gingivobuccal aspect of the left lower jaw corresponding to the lower molars. There is a pocket of abscess draining out from the gum there. NECK: Trachea midline. No JVD. CARDIOVASCULAR: Regular rate and rhythm. No murmur appreciated. RESPIRATORY: No accessory muscle use. Clear to auscultation. Breath sounds equal bilaterally. GASTROINTESTINAL: Abdomen soft, non-tender, nondistended. Hepatic and splenic margins not palpable. MUSCULOSKELETAL: No obvious deformities. No clubbing. No cyanosis. No edema. NEUROLOGICAL: Awake and alert. No obvious cranial nerve deficits. Motor grossly within normal limits. Normal speech. PSYCHIATRIC: Appropriate mood and affect; insight and judgment normal. Data Data Last Documented VS Vital Signs Date Time Temp Pulse Resp B/P (MAP) Pulse Ox O2 Delivery O2 Flow Rate FiO2 11/22/17 21:53 98.4 116 18 140/85 (103) 98 Orders Orders Sepsis Workup Initiated (11/22/17 ) Complete Blood Count With Diff (11/22/17 22:25) Comprehensive Metabolic Panel (11/22/17 22:25) Lactic Acid Sepsis Protocol (11/22/17 22:25) Blood Culture (11/22/17 22:25) Blood Glucose (11/22/17 22:25) Ecg Monitoring (11/22/17 22:25) Iv Access Insert/Monitor (11/22/17 22:25) Oximetry (11/22/17 22:25) Oxygen Administration (11/22/17 22:25) Clindamycin 600 Mg/Ns Premix (Cleocin 60 (11/22/17 22:30) Ketorolac Inj (Toradol Inj) (11/22/17 22:30) Ct Facial Bones W/O Iv Cont (11/22/17 ) Ed Discharge Order (11/23/17 00:11) Labs Laboratory Tests Test 11/22/17 23:30 White Blood Count 9.0 TH/MM3 Red Blood Count 4.70 MIL/MM3 Hemoglobin 16.0 GM/DL Hematocrit 46.4 % Mean Corpuscular Volume 98.7 FL Mean Corpuscular Hemoglobin 34.0 PG Mean Corpuscular Hemoglobin Concent 34.4 % Red Cell Distribution Width 14.4 % Platelet Count 203 TH/MM3 Mean Platelet Volume 9.2 FL Neutrophils (%) (Auto) 71.5 % Lymphocytes (%) (Auto) 18.7 % Monocytes (%) (Auto) 7.8 % Eosinophils (%) (Auto) 1.3 % Basophils (%) (Auto) 0.7 % Neutrophils # (Auto) 6.4 TH/MM3 Lymphocytes # (Auto) 1.7 TH/MM3 Monocytes # (Auto) 0.7 TH/MM3 Eosinophils # (Auto) 0.1 TH/MM3 Basophils # (Auto) 0.1 TH/MM3 CBC Comment DIFF FINAL Differential Comment Blood Urea Nitrogen 11 MG/DL Creatinine 1.29 MG/DL Random Glucose 88 MG/DL Total Protein 8.5 GM/DL Albumin 4.0 GM/DL Calcium Level 9.3 MG/DL Alkaline Phosphatase 76 U/L Aspartate Amino Transf (AST/SGOT) 20 U/L Alanine Aminotransferase (ALT/SGPT) 21 U/L Total Bilirubin 0.5 MG/DL Sodium Level 138 MEQ/L Potassium Level 4.2 MEQ/L Chloride Level 101 MEQ/L Carbon Dioxide Level 29.0 MEQ/L Anion Gap 8 MEQ/L Estimat Glomerular Filtration Rate 71 ML/MIN Lactic Acid Level 0.9 mmol/L [facility] Medical Decision Making Medical Screen Exam Complete: Yes Emergency Medical Condition: Yes Medical Record Reviewed: Yes Differential Diagnosis Dental abscess, peridental abscess, facial cellulitis Narrative Course 11:33 PM awaiting for blood test result. CAT scan does not show an abscess. Unfortunately however this CAT scan was done without an IV contrast. There is soft tissue swelling as per the radiologist. Patient is getting IV clindamycin. Patient is HIV positive who is on antiretroviral treatment. 12:12 AM blood test results are back and within normal limit. Patient says that he has been compliant with his antiretrovirals and he does not recall his CD4 count or viral load. However the last test was done 1-2 months ago. I am comfortable discharging him home on oral antibiotic and some pain medication. Procedures EKG Prior to Arrival: No Diagnosis Primary Impression: Facial cellulitis Additional Impression: Pain, dental Additional Instructions: Follow-up with your primary care as well as a dentist. Take the medication as per prescription direction. Do salt water gargles and mouth rinse. Return to the ER if condition worsens or any other new concerns. Med/Other Pt SpecificInfo: Prescription(s) given Scripts Hydrocodone-Acetaminophen (Hydrocodone-Acetaminophen) 5-325 mg Tab 1 TAB PO Q6H Y for PAIN, #10 TAB 0 Refills Prov: Jose Antonio Rae MD 11/23/17 Amoxicillin-Clavulanate (Augmentin) 875-125 Mg Tab 1 TAB PO BID for Infection for 10 Days, #20 TAB 0 Refills Prov: Jose Antonio Rae MD 11/23/17 Disposition: 01 DISCHARGE HOME Condition: Stable Jose Antonio Rae MD Nov 22, 2017 22:22
[2017-11-22] MEDS ORDERED: CLINDAMYCIN 600 MG/NS PREMIX 50 ML IV ONE (22:30)
[2017-11-22] MEDS ORDERED: KETOROLAC TROMETHAMINE 30 MG/ML (IVP) VIAL IV PUSH ONE (22:30)
--- NOTE | 2017-11-22 23:11 | RADRPT ---
EXAM DATE: 11/22/2017 10:51 PM EDT AGE/SEX: 52 years / Male INDICATIONS: Left lower teeth pain. Evaluate for dental abscess. CLINICAL DATA: This is the patient's initial encounter. Patient reports that signs and symptoms have been present for 2 days and indicates a pain score of 10/10. MEDICAL/SURGICAL HISTORY: Hepatitis. Hypertension. HIV. None. RADIATION DOSE: 55.90 CTDI (mGy) [place] [facility] [place] 12/17/[place]. . TECHNIQUE: Contiguous images in the axial and coronal planes were obtained using helical multirow de tector technique. Using automated exposure control and adjustment of the mA and/or kV according to p atient size, radiation dose was kept as low as reasonably achievable to obtain optimal diagnostic jacinto lity images. FINDINGS: Orbits: The orbital and infraorbital osseous structures are intact. The retroconal structures have a normal configuration. No radiopaque foreign bodies are seen. There is an old fracture involving th e medial wall of the left orbit. No significant change compared to the prior study. Nasal Bone: Stable old fractures involving the nasal bones. No change from 2014. No acute bony fract ure. Zygomatic Arches: Symmetric without evidence of fracture. Sinuses: The maxillary, ethmoid, and frontal sinuses are intact. No air-fluid levels seen. Mild chr onic sinus disease in the floor of the maxillary sinuses bilaterally. Nasal Cavity: S shaped nasal septum. Mild mucosal thickening. Soft Tissues: There is some nonspecific soft tissue swelling along the left mandible area. No locula julian fluid collections are seen. The bony structures of the mandible are grossly intact. Intracranial: No intracranial air seen. Cribriform Plate: Grossly intact. CONCLUSION: 1. Nonspecific soft tissue swelling along the left mandible area. 2. Old fracture involving the medial wall of the left orbit. 3. Old healed nasal bone fracture. 4. Mild mucosal thickening in the base of both maxillary sinuses consistent with some mild chronic s inus disease. Electronically signed by: Chris Cisse MD 11/22/2017 11:10 PM EDT
[2017-11-22 23:42] LABS: AUTOMATED NEUTROPHIL # 6.4 TH/MM3 (1.8-7.7); BASOPHIL # 0.1 TH/MM3 (0-0.2); BASOPHIL % 0.7 % (0.0-2.0); EOSINOPHIL # 0.1 TH/MM3 (0-0.4); EOSINOPHIL % 1.3 % (0.0-4.0); HEMATOCRIT 46.4 % (39.0-51.0); LYMPH % 18.7 % (9.0-44.0); LYMPHOCYTE # 1.7 TH/MM3 (1.0-4.8); MEAN CELL VOLUME 98.7 FL (80.0-100.0); MEAN CORPUSCULAR HGB CONC 34.4 % (32.0-36.0); MEAN PLATELET VOLUME 9.2 FL (7.0-11.0); MONO % 7.8 % (0.0-8.0); MONOCYTE # 0.7 TH/MM3 (0-0.9); NEUT % 71.5 % (16.0-70.0); PLATELET COUNT 203 TH/MM3 (150-450); RED CELL DISTRIBUTION WIDTH 14.4 % (11.6-17.2)
[2017-11-23 00:02] LABS: ALKALINE PHOSPHATASE 76 U/L (45-117); TOTAL BILIRUBIN ADULT 0.5 MG/DL (0.2-1.0); TOTAL PROTEIN 8.5 GM/DL (6.4-8.2)
[2017-11-23 00:06] LABS: ALT (GPT) 21 U/L (12-78); AST (GOT) 20 U/L (15-37); BLOOD UREA NITROGEN 11 MG/DL (7-18); CALCIUM 9.3 MG/DL (8.5-10.1); CHLORIDE 101 MEQ/L (98-107); CREATININE 1.29 MG/DL (0.60-1.30); GLOMERULAR FILTRATION RATE 71 ML/MIN (>89); GLUCOSE,RANDOM 88 MG/DL (74-106); SODIUM (NA) 138 MEQ/L (136-145)
[2017-11-23] MEDS ORDERED: HYDR-3516 PO (00:15)
[2017-11-23] MEDS ORDERED: AUGM875T3 PO (00:15)
== END 2017-11-23 01:00 | disposition home or self-care (01) ==
LOC: NEPD 21:47
DX: L03.211 Cellulitis of face (principal); K08.89 Other specified disorders of teeth and supporting structures; B20 Human immunodeficiency virus [HIV] disease; R00.0 Tachycardia, unspecified; F41.9 Anxiety disorder, unspecified; E78.00 Pure hypercholesterolemia, unspecified; I10 Essential (primary) hypertension; F17.200 Nicotine dependence, unspecified, uncomplicated; Z86.19 Personal history of other infectious and parasitic diseases
CPT/HCPCS: 70486; 80053; 83605; 85025; 87040; 96374; 96375; 99284; J1885